=== PATIENT | female | born 1960 | race Caucasian/White ===

== ENCOUNTER 2020-02-05 14:42 | Inpatient (IN) | payer OTHER ==
[~2020-02-05] VITALS: Ht 172.7 cm; Wt 85.8 kg
--- NOTE | ~2020-02-05 | EMS ---
[facility] [address] [place] [address] EMS Patient Care Report Name: QUINTON VALADEZ Room #: PRE [place] M.R.#: [id number] Admission: Attend Phys: Discharge: Date of : 56 Report #: [id number] THIS REPORT FOR: //name// Report Transmitted: 02/05/2020 14:24 EMS Care Summary [place], [place]/[facility] Incident [id number] @ 02/05/2020 14:15 Incident Location [id number] [place] [address] Patient QUINTON VALADEZ Female, 59 Years 1960 Patient Address [id number] [place] [address] [address] [place] [address] Patient History Chronic Obstructive Pulmonary Disease (COPD),Edema,Dialysis,Back Pain (Chronic), Patient Allergies No known allergies, Patient Medications Amlodipine, Advair, Lasix, Acetaminophen, Chief Complaint SOA Disposition Transported No Lights/Willard Dispatch Reason Breathing Problem Transported To [facility] Narrative RESPONDED TO BREATHING PROBLEMS AT [facility]. UPON ARRIVAL PT FOUND SITTING IN WHEELCHAIR WITH 3LPM NC BASELINE, PT IS ALERT AND ORIENTED. AL STAFF REPORT PT WAS DIALYZED YESTERDAY BUT THE LAST FEW TIMES AT DIALYSIS THEY [facility] [address] [place] [address] EMS Patient Care Report Name: QUINTON VALADEZ Room #: LOGAN Ford.Alissa.#: [id number] Admission: Attend Phys: Discharge: Date of : 56 Report #: [id number] COULD NOT PULL ENOUGH FLUID OFF. ONLY ABLE TO PULL APPROX 20 UNITS OF FLUID SAFELY DURING DIALYSIS. PT STATES "I FEEL LIKE I'M GOING TO POP!" PT HAS WEEPING BLISTERES ON LEGS FROM FLUID BUILD UP. PT REPORTS FEELING MORE SOA THAN NORMAL. PT IS ABLE TO PIVOT FROM WHEELCHAIR TO COT. O2 PUT AT 4LPM BY EMS. VITALS AND 3LEAD OBTAINED. PT TRANSPORTED TO [facility] WITH NO CHANGE IN CONDITION. PT SCOOTED TO BED AND HANDRAILS UP. REPORT GIVEN TO NURSE. Initial Vitals @14:30P: 85,CO: 1,SpO2: 96, @14:34P: 85,R: 22,BP: 128/54,CO: 1,SpO2: 97, @14:29P: 94,R: 22,BP: 134/86,Pain: 4/10,GCS: 15,SpO2: 95,Revised Trauma: 12, Assessments @14:25MENTAL:Person Oriented,Time Oriented,Place Oriented,Event Oriented,SKIN:HEENT:Head/Face: No Abnormalities,Neck/Airway: No Abnormalities,LUNG SOUNDS:ABDOMEN:PELVIS//GI:EXTREMITIES:Right Leg: Edema,Left Leg: Edema,Left Arm: No Abnormalities,Right Arm: No Abnormalities,PULSE:NEURO:No Abnormalities,@14:32MENTAL:No Abnormalities,SKIN:No Abnormalities,HEENT:Head/Face: No Abnormalities,Eyes: No Abnormalities,Neck/Airway: No Abnormalities,LUNG SOUNDS:General: No Abnormalities,Left Upper: No Abnormalities,Right Upper: No Abnormalities,Left Lower: No Abnormalities,Right Lower: No Abnormalities,ABDOMEN:General: No Abnormalities,Left Upper: No Abnormalities,Right Upper: No Abnormalities,Left Lower: No Abnormalities,Right Lower: No Abnormalities,PELVIS//GI:No Abnormalities,EXTREMITIES:Left Leg: Edema,Right Leg: Edema,Left Arm: No Abnormalities,Right Arm: No Abnormalities,PULSE:NEURO:No Abnormalities, Impression Edema Procedures @14:25ALS AssessmentResponse: UnchangedSucceeded@14:28Oxygen FlowRate: 4 Device: Nasal Cannula (NC) Response: UnchangedSucceeded@14:303-Lead ECGResponse: UnchangedSucceeded Timeline 14:14,Call Received 14:14,Dispatch Notified 14:15,Dispatched 14:15,En Route 14:21,On Scene 14:25,At Patient 14:25,ALS Assessment,Response: UnchangedSucceeded, 14:28,Oxygen FlowRate: 4 Device: Nasal Cannula (NC) Response: UnchangedSucceeded, 14:29,BP: 134/86 M,PULSE: 94,RR: 22 R,SPO2: 95 Ox,ETCO2: ,BG: ,PAIN: 4,GCS: 15, [address] [address] EMS Patient Care Report Name: QUINTON VALADEZ Room #: PRE M.R.#: [id number] Admission: Attend Phys: Discharge: Date of : 56 Report #: [id number] 14:29,Depart Scene 14:30,3-Lead ECG,Response: UnchangedSucceeded, 14:30,BP: / M,PULSE: 85,RR: R,SPO2: 96 Ox,ETCO2: ,BG: ,PAIN: ,GCS: , 14:34,BP: 128/54 M,PULSE: 85,RR: 22 R,SPO2: 97 Ox,ETCO2: ,BG: ,PAIN: ,GCS: , 14:50,At Destination 14:57,Call Closed Disclaimer v1.1 Copyright 2020 [employer] This EMS Care Summary contains data elements from the applicable legal record (which may be displayed differently). It is designed to provide pertinent information for the following purposes: continuity of care, clinical quality, and state data reporting. The complete legal record is available to ED staff and administrators of the receiving hospital in [employer]'s Patient Tracker. All data is provided "as is."
--- NOTE | ~2020-02-05 | HC ---
[facility] [place] [address] CONSULTATION Name: QUINTON VALADEZ Room #: 349-I ADM IN M.R.#: [id number] Admission: 02/05/20 Attend Phys: Van Bautista MD Discharge: Date of : 56 Report #: [id number] THIS REPORT FOR: cc: Michele Hernandez MD, Srinath MD Al-Absi,Garry Hernandez MD ~ REASON FOR CONSULTATION: End-stage renal disease. HISTORY OF PRESENT ILLNESS: This is a 59-year-old who is maintained on dialysis at the [facility] every Sunday, Sunday and Sunday. She reported to the Emergency Room having some issues with fluid overload, shortness of breath, bilateral lower extremity edema. The patient does not know the details about her kidney history unfortunately. She tells me that she has been on hemodialysis for quite a while, but she is not able to elaborate more for me. She tells me that she has been having issues with fluid retention in the last couple of weeks and her dialysis unit is not able to pull as much as they want. She was admitted after being found to have fluid overload for further management with aggressive dialysis treatments. I was consulted to manage her end-stage renal disease. PAST MEDICAL HISTORY: 1. End-stage renal disease, maintained on hemodialysis every Sunday, Sunday and Sunday. Source of her end-stage renal disease is not known. 2. Chronic obstructive pulmonary disease. 3. Neuropathy. MEDICATIONS: Include the followin. Sevelamer. 2. Amlodipine. 3. Hydralazine. 4. Cephalexin. ALLERGIES: None. SOCIAL HISTORY: Resides in [facility]. No drug or alcohol abuse. FAMILY HISTORY: Significant for hypertension. REVIEW OF SYSTEMS: GENERAL: Significant for weakness. CARDIOVASCULAR: Significant for shortness of breath and dyspnea on exertion. PULMONARY: Significant for cough and shortness of breath. GASTROINTESTINAL: No nausea or vomiting. GENITOURINARY: No frequency, no urgency. MUSCULOSKELETAL: As per the history of present illness. [facility] [address] [place] [address] CONSULTATION Name: QUINTON VALADEZ Room #: 349-I ADM IN .R.#: [id number] Admission: 02/05/20 Attend Phys: Van Bautista MD Discharge: Date of : 56 Report #: [id number] PHYSICAL EXAMINATION: VITAL SIGNS: Her temperature is 36.9, blood pressure is 142/59. HEAD AND NECK: No jugular venous distention. CHEST: Decreased air entry bilaterally with crackles. CARDIOVASCULAR: No rub. ABDOMEN: Soft, nontender. LOWER EXTREMITIES: Extensive edema with erythematous changes. LABORATORY VALUES: Hemoglobin is 7.5. Sodium is 133, potassium is 6.3, BUN of 52, creatinine of 4.8. IMPRESSION AND PLAN: 1. End-stage renal disease. 2. Hyperkalemia. 3. Fluid overload. 4. Arrangement for the patient to have hemodialysis today. 5. Watch hemoglobin. 6. I will reach out to her dialysis unit to obtain more input about her medical history as the patient is not able to provide me with the exact details regarding her end-stage renal disease, history, ongoing anemia issues, ongoing vitamin D issues. By: [phone] Garry Deshpande MD /nt
[2020-02-05 14:44] VITALS: BP 133/48
[2020-02-05 15:22] LABS: HEMATOCRIT 23.9 % (37.0-47.0); HEMOGLOBIN 7.4 gm/dL (12.0-15.0); MCH 29.9 pg (26.0-34.0); MCHC 31.1 g/dL (28.0-37.0); MCV 96.4 fL (80.0-100.0); PLATELET COUNT 202 thou/uL (150-400); RBC 2.48 mil/uL (4.20-5.00); RDW 20.1 % (10.5-14.5); WBC 6.5 thou/uL (4.0-11.0)
[2020-02-05] MEDS ORDERED: TYLENOL325 M1 PO (15:34)
[2020-02-05] MEDS ORDERED: APAP W/CODEINE1 TA2 PO (15:36)
[2020-02-05] MEDS ORDERED: ADVAIR 250-501 EACH INH (15:36)
[2020-02-05] MEDS ORDERED: AMLODIPINE BESY10 MG PO (15:36)
[2020-02-05] MEDS ORDERED: LOMOTIL 2.5-0.01 TAB PO (15:37)
--- NOTE | 2020-02-05 15:37 | EKG ---
[facility] [place] [address] ELECTROCARDIOGRAM REPORT Name: QUINTON VALADEZ Room #: PRE [facility]..#: [id number] Admission: Attend Phys: Discharge: Date of : 56 Report #: [id number] THIS REPORT FOR: cc: Jorden Girard MD [facility] ~ THIS REPORT FOR: //name// [facility] ED Test Date: 2020-02-05 Test Time: 15:26:22 Pat Name: QUINTON VALADEZ Department: Room: Gender: F Support Representative: : 1960 Requested By: Terry Smith Order Number: [id number] MD: Jorden Girard Measurements Intervals [place] Rate: 81 P: 59 WA: 138 QRS: 48 QRSD: 134 T: 29 QT: 405 QTc: 470 Interpretive Statements Sinus rhythm Right bundle branch block No previous ECG available for comparison Electronically Signed On 02-05-2020 15:37:08 JEWELRY DESIGNER by Jorden Girard [email or web address] <ELECTRONICALLY SIGNED> By: Jorden Girard MD, FAC 02/05/20 1537 1526 1526 Jorden Girard MD, FACC /EPI
[2020-02-05] MEDS ORDERED: HYDRALAZINE 5050 MG PO (15:38)
[2020-02-05] MEDS ORDERED: FUROSEMIDE 40 M40 MG PO (15:38)
[2020-02-05] MEDS ORDERED: KEFLEX500 M1 PO (15:39)
[2020-02-05] MEDS ORDERED: PROBIOTIC1 EAC7 PO (15:40)
[2020-02-05 15:47] LABS: CALCIUM 8.5 mg/dL (8.5-10.1); CREATININE 4.4 mg/dL (0.6-1.0); POTASSIUM 5.1 mmol/L (3.5-5.1)
[2020-02-05 16:01] LABS: ABSOLUTE NEUTROPHILS 5.2 thou/uL (1.4-8.2)
[2020-02-05 16:02] LABS: ANISOCYTOSIS 1+; PLATELET ESTIMATE NORMAL
[2020-02-05 17:18] LABS: BE(vivo) -6.4 mmol/L (-2 to +3); HCO3 21.1 mmol/L (22.0-26.0); PCO2 52.2 mmHg (35.0-45.0); PO2 140.8 mmHg (80.0-100.0); sO2 98.3 % (92.0-98.0)
[2020-02-05 17:19] LABS: pH 7.225 (7.360-7.450)
[2020-02-05 18:05] LABS: % SATURATION 17 % (20-39); IRON 45 ug/dL (50-170); TIBC 264 ug/dL (250-450)
[2020-02-05 18:32] LABS: FOLIC ACID 9.4 ng/mL (8.6-58.9); TSH 1.839 uIU/mL (0.358-3.740)
[2020-02-06] VITALS (8 sets, daily range): BP systolic 120–142; BP diastolic 58–72
--- NOTE | 2020-02-06 05:31 | NUR ---
PT ARRIVED FROM ER VIA BED. PLACED IN ROOM 349. ADMISSION ASSESSMENTS COMPLETED. PT STATING THAT SHE CAME TO THE HOSPITAL DUE TO LOWER BACK PAIN. SHE DENIES IT WAS BECAUSE OF FEELING SOA. PT LYING IN BED WITHOUT OXYGEN IN PLACE. PT STATES "THEY WOULND'T GIVE ME OXYGEN DOWNSTAIRS." THOUGH ER REPORT WAS THAT PT WAS WEARING OXYGEN AT 3L PER NC. PT HAS GENERALIZED EDEMA, THROUGHOUT BOTH LEGS, HER WAIST LINE AND IN DEPENDENT AREAS OF HER BACK, HIPS AND GROIN. HAS ERYTHEMA TO BOTH HER LOWER LEGS. AFEBRILE THIS AM. REPORTS LOWER BACK PAIN THAT WAS 8/10.
[2020-02-06 06:24] LABS: ABSOLUTE NEUTROPHILS 3.7 thou/uL (1.4-8.2); BASOPHILS 0.4 % (0.0-2.0); HEMATOCRIT 23.7 % (37.0-47.0); HEMOGLOBIN 7.5 gm/dL (12.0-15.0); MCH 29.9 pg (26.0-34.0); MCHC 31.7 g/dL (28.0-37.0); MCV 94.3 fL (80.0-100.0); MONOCYTES 2.4 % (1.0-8.0); PLATELET COUNT 204 thou/uL (150-400); POLYS 91.2 % (36.0-66.0); RBC 2.52 mil/uL (4.20-5.00); WBC 4.1 thou/uL (4.0-11.0)
[2020-02-06 06:33] LABS: CALCIUM 9.3 mg/dL (8.5-10.1); CREATININE 4.8 mg/dL (0.6-1.0); MAGNESIUM 2.1 mg/dL (1.8-2.4)
[2020-02-06 06:37] LABS: POTASSIUM 6.3 mmol/L (3.5-5.1)
--- NOTE | 2020-02-06 06:41 | NUR ---
FUNMILAYO FROM LAB CALLED WITH CRITICAL LAB, POTASSIUM 6.3. RESULTS GIVEN TO PT NURSE AND PROTOCOL FOLLOWED.
[2020-02-06] MEDS ORDERED: OMEPRAZOLE 20 M20 M1 PO (07:40)
[2020-02-06] MEDS ORDERED: KLOR-CON M2020 MEQ PO (07:40)
[2020-02-06] MEDS ORDERED: PREGABALIN75 MG PO (07:42)
[2020-02-06] MEDS ORDERED: PREGABALIN150 MG PO (07:42)
[2020-02-06] MEDS ORDERED: RENVELA0.8 GM PO (07:44)
[2020-02-06] MEDS ORDERED: TIZANIDINE HCL2 M1 PO (07:44)
[2020-02-06] MEDS ORDERED: TOPAMAX100 MG PO (07:45)
[2020-02-06 10:23] LABS: BE(vivo) -0.7 mmol/L (-2 to +3); HCO3 24.5 mmol/L (22.0-26.0); PCO2 42.5 mmHg (35.0-45.0); PO2 104.2 mmHg (80.0-100.0); pH 7.378 (7.360-7.450); sO2 97.7 % (92.0-98.0)
--- NOTE | 2020-02-06 14:50 | NUR ---
ASSUMED PATIENT CARE AT 0700. A/O X3. CONFUSED. 5L FLUID MOVED BY HD. BLE WRAPED PER WOUND ORDER. TRANSFER TO [facility] NOW. WILL KEEP MONITOR.
--- NOTE | 2020-02-06 15:35 | NUR ---
ASSUMED CARE OF PT AT 1515 WHEN PT BROUGHT TO UNIT BY NURSING STAFF ON 3W. RECEIVED REPORT FROM PREVIOUS NURSE PRIOR TO TRANSFER. PT DENIES PAIN, ALERT AND ORIENTED TO PERSON AND PLACE ONLY. VITAL SIGNS ARE STABLE. +3 PITTING EDEMA TO BLE AND RUE. RIGHT SUBCLAVIAN LINE NOTED ON ASSESSMENT. 3L O2 VIA NC. IV TO LEFT FOREARM FLUSHES APPROPRIATELY AND IS SALINE LOCKED AT THIS TIME. PT REPORTS THAT SHE DOES NOT URINATE. RED AREA TO BUTTOCKS, BARRIER CREAM APPLIED TO AREA AND PT INSTRUCTED TO CHANGE POSITION FREQUENTLY AND TURN Q2H TO RELIEVE PRESSURE. FALL PRECAUTIONS IN PLACE AND NURSING WILL CONTINUE TO MONITOR.
--- NOTE | 2020-02-06 15:59 | NUR ---
INITIAL ASSESSMENT: BRADLY reviewed chart and spoke with nursing. Pt was admitted from [place] due to bilateral pleural effusion. Pt placed in Enhanced Isolation to r/o COVID-19. Pt's test was negative. Enhanced Isolation precautions discontinued. Pt moved to [facility] after dialysis. BRADLY placed call to pt's room. No answer. BRADLY left voice message for pt's family member, Jimena. sales planner to fax clinical info to [place] for review. BRADLY left voice message for Katelynn in admissions to see if they are able to accept pt back over the weekend if she is ready for discharge. Awaiting call back at this time. Finalized discharge orders/summary will need to be faxed to the facility when available. BRADLY is following to assist as needed with discharge planning. [place]--
--- NOTE | 2020-02-07 05:34 | NUR ---
ASSUMED PT'S CARE THIS SHIFT. PT ALERT AND ORIENTED X3. SOME CONFUSION AND FORGETFULNESS. PT TOOK MEDS WITHOUT ISSUES. PRN PAIN MED GIVEN THIS SHIFT. 3L O2. RIGHT SUBCLAV DIALYSIS CATH. LFA IV SL. DRESSINGS TO BLE REINFORCED. PT CAN BE VERY RUDE AND DISRESPECTFUL. PT VOICED WANTING TO GO OUTSIDE TO SMOKE. PT INFORMED THIS IS NONSMOKING FACILITY. PT GOT UPSET, INSISTING OF GOING OUT. NURSING ASKED IF PT WANTS NICOTINE PATCH, PT REPLIED "FK OFF". PT WAS SITTING AT EGDE OF BED, ENCOURAGED TO SIT NI TO AVOID FALLING, PT DECLINED. PRN HALDOL GIVEN THIS SHIFT. PT CURRENTLY SITTING ON HER RECLINER. PT SLEPT OFF AND ON. REFUSED BREATHING TREATMENTS. FALL PRECAUTIONS IN PLACE. WILL CONTINUE TO MONITOR.
[2020-02-07 08:35] VITALS: BP 157/70
--- NOTE | 2020-02-07 15:04 | NUR ---
PT A&O, FORGETFUL, ANXIOUS, FUSSY. PATIENT C/O OF BACK PAIN, MEDICAITON GIVEN. PATIENT RECEIVED DIALYSIS TODAY. PATIENT HAS GENERALIZED EDEMA. BILAT LE CELLULITIS, DREESING CHANGE COMPLETED. DIALYSIS CATH RIGHT SUBCLAVIAN, IV PATENT. NO SIGNS OF DISTRESS. WILL CONTINUE TO MONITOR.
[2020-02-07 16:29] VITALS: BP 159/85
--- NOTE | 2020-02-07 19:20 | NUR ---
AT THE START OF DIALYSIS PATIENT DID NOT WANT TO REMAIN IN BED. SHE WAS VERY RESTLESS AND KEPT ATTEMPTED TO GET FEET OUT OF BED TO STAND UP. MANY ATTEMPTS TO GET PATIENT TO STOP DOIND THIS BUT PATIENT SEEMED TO FORGET THE EDUCATION AND AGAIN ATTMPTED TO GET OUT OF BED. FLOOR RN PROVIDED LORAZEPAM AND AFTER ADMINISTRATION PATIENT QUICKLY FEEL ASLEEP. PATIENT SLEEPT FOR 2 HOURS AND THEN WOKE BACK UP TO CONTINUE SAME BEHAVIOUR OF ATTEMPTS TO GET FEET OUT OF BED AND TO THE FLOOR. THIS TOY STUFFER NOTIFIED PHYSICIAN THAT TREATMENT WAS SHORTENED DUE TO PATIENTS BEHAVIOR AND UF RATE INCREASED IN ATTEMPTS TO GET UF GOAL OF 4 LITERS IN 3 HOURS. THIS WAS ACCOMPLISHED WITHOUT COMPLICATIONS OUTSITE OF PATIENT ATTEMPTED TO LEAVE THE BED AND STAND. UPON ENDING TREATMENT THIS TOY STUFFER GOT PATIENT TO CHAIR AND PROVIDED THE PATIENT HER DINNER TRAY. THIS TOY STUFFER WAS CLEANING EQUIPMENT, PATIENT ASKED FLOOR NURSE JACEK TO GET HER BACK TO BED. PATIENT BACK IN BED THIS TOY STUFFER TOOK SUPPLY CART TO STORAGE ROOM. AT THE TIME THIS TOY STUFFER HAD RETURNED TO GET THE REMAINING MACHINE AND RO A DIFFERENT FLOOR NURSE WAS GETTING THE PATIENT BACK TO THE CHAIR BECAUSE THE PATIENT AGAIN WAS TRYING TO GET BACK OUT OF BED. AT THE TIME THIS TOY STUFFER LEFT PATIENTS ROOM WITH EQUIPMENT - 4 NURSES HAD PATIENT IN SETTELED IN BEDSIDE CHAIR.
[2020-02-07 21:17] VITALS: BP 136/73
--- NOTE | 2020-02-08 05:30 | NUR ---
Assumed pt care at 1900. A/OX4 with forgetfulness noted. VSS. Pt very anxious/restless at the beginning of the shift,medicated with ativan with relief noted. C/o generalized pain,medicated per EMAR with relief reported. Pt get's impulsive at times and keeps getting up w/o calling for help. Fall precautions in place. Generalized edema noted all over, pt encouraged to keep BLE elevated but constantly putting them down. Dressing change to BLE done at HS w/o problems. Pt often awakens and states she wants to go and smoke;educated pt on smoking cessation and this is a non-smoking facility, offered a Nicotine patch but she declined it. Right chest tessio in place, dialyzed yesterday. PCR swab obtained w/o problems. Resting on the chair at this time,feet down. Oxygen in place at 3L/NC. Will continue to monitor pt.
[2020-02-08 05:34] LABS: HEMATOCRIT 22.6 % (37.0-47.0); HEMOGLOBIN 7.2 gm/dL (12.0-15.0); MCH 30.1 pg (26.0-34.0); MCHC 31.9 g/dL (28.0-37.0); MCV 94.1 fL (80.0-100.0); PLATELET COUNT 194 thou/uL (150-400); RDW 18.9 % (10.5-14.5); WBC 4.8 thou/uL (4.0-11.0)
[2020-02-08 06:19] LABS: CALCIUM 8.3 mg/dL (8.5-10.1); POTASSIUM 3.8 mmol/L (3.5-5.1)
[2020-02-08 06:21] LABS: CREATININE 2.8 mg/dL (0.6-1.0)
[2020-02-08 07:47] VITALS: BP 137/67
[2020-02-08 09:33] LABS: ABSOLUTE NEUTROPHILS 3.7 thou/uL (1.4-8.2)
[2020-02-08 09:34] LABS: ANISOCYTOSIS 2+
--- NOTE | 2020-02-08 13:50 | NUR ---
PT A&OX2, VSS, C/O GENERALIZED PAIN. PATIENT IMPULSIVE AT TIMES, WANTING TO GO FROM RECLINER TO BED OFTEN. FORGETFUL AT TIMES. PATIENT C/O NOT BEING ABLE TO SMOKE AND DECLINES NICOTINE PATCH. PATIENT REFUSES SCHEDULED BRREATHING TREATMENTS, NOW PRN. PATIENT HAS GENERALIZED EDEMA. PATIENT ON 3L OF OXYGEN, SOA WITH EXERTION. NO SIGNS OF DISTRESS. WILL CONTINUE TO MONITOR.
[2020-02-08 19:48] VITALS: BP 157/81
--- NOTE | 2020-02-09 00:39 | NUR ---
PATIENT WAS IN BED WITH HOB UP 40 DEGREES WHEN I CAME ON SHIFT TONIGHT. SHE HAD REMOVED WOUND DRESSING AND WRAP FROM RIGHT LEG AND HAD REFUSED TO LET DAY NURSE REDRESS IT. PATIENT IS A/0X1 AND FORGETFUL. SHE IS IMPULSIVE AND TRIES TO SIT UP ON SIDE OF BED TO DANGLE LEGS. HER EDEMA IN HER BLE'S ARE 3+ SHE HAS EDEMA THRUOUT TORSO AND ABDOMEN. SHE HAS RIGHT EXTERNAL CATHETER IN RIGHT CHEST THAT IS USED FOR DIALYSIS ON SUN,WED,FRI. PATIENT WITH C/O BACK PAIN. PAIN MED GIVEN AT 2010. PATIENT WAS ALSO GIVEN DOSE OF HALDOL IV IN SALINE LOCK AT LEFT HAND. LORAZEPAM .5MG IV PUSH ALSO GIVEN AT 2010. PATIENT CALMED FOR AN HOUR AND THEN BECAME ANXIOUS AND TRYING TO GET OUT OF BED. PATIENT WAS SAT IN RECLINER CHAIR WITH IT LOCKED AND CHAIR ALARM ON AND IN PLACE. ZOFRAN 4MG GIVEN IVP. PATIENT'S RIGHT WOUND CARE DONE AND REDRESSED AND JANETTE BANDAGE WRAP APPLIED TO BLE. PATIENT IS ON 02 AT 3LNC. SHE APPEARS TO BE RESTING WITH HER EYES CLOSED AT THIS TIME. SHE IS REFUSING TO KEEP BLE'S ELEVATED. CONTINUING TO MONITOR.
[2020-02-09 05:44] LABS: HEMATOCRIT 23.5 % (37.0-47.0); HEMOGLOBIN 7.4 gm/dL (12.0-15.0); MCH 29.9 pg (26.0-34.0); MCHC 31.6 g/dL (28.0-37.0); MCV 94.7 fL (80.0-100.0); PLATELET COUNT 187 thou/uL (150-400); RBC 2.48 mil/uL (4.20-5.00); RDW 18.3 % (10.5-14.5); WBC 4.4 thou/uL (4.0-11.0)
[2020-02-09 05:56] LABS: MAGNESIUM 2.1 mg/dL (1.8-2.4); PHOSPHORUS 5.5 mg/dL (2.5-4.9)
[2020-02-09 06:22] LABS: ABSOLUTE NEUTROPHILS 2.8 thou/uL (1.4-8.2); ANISOCYTOSIS 3+; OVALOCYTES FEW; POLYCHROMASIA OCCASIONAL
--- NOTE | 2020-02-09 06:24 | NUR ---
PATIENT SLEPT IN HER RECLINER MOST OF NIGHT. SHE WOULD NOT KEEP HER FEET ELEVATED AND TOPS OF FEET RED. PATIENT HELPED BACK TO BED AT 0600 AND IS RESTING. SPOKE WITH US LICENSED PROFESSIONAL COUNSELOR AND SHE SAID NOT TO GIVE PATIENT BREAKFAST UNTIL AFTER US DONE. SHE STATES TO GO AHEAD AND GIVE MEDS WITH WATER. PATIENT ALSO TO HAVE DIALYSIS DONE TODAY. PANTROPAZOLE 40MG PO GIVEN WITH SIPS OF H20. BED IN LOW POSITION AND BED ALARM IS ON.
--- NOTE | 2020-02-09 09:30 | 2DMMODE ---
[facility] [address] [place] [address] 2 D/M-MODE ECHOCARDIOGRAM Name: QUINTON VALADEZ Room #: 458-P ADM IN M.R.#: [id number] Admission: 02/05/20 Attend Phys: Van Bautista MD Discharge: Date of : 56 Report #: [id number] THIS REPORT FOR: cc: Michele Hernandez MD, Srinath MD Park, Jin S. MD ~ APPROVED REPORT Study performed: 02/09/2020 08:22:48 EXAM: Comprehensive 2D, Doppler, and color-flow Echocardiogram Patient Location: Bedside Room #: [facility] Status: routine BSA: 1.99 HR: 80 bpm BP: 157/81 mmHg Rhythm: NSR/RBBB Other Information Study Quality: Good Indications Fluid overload, short of air. Hx: ESRD, HTN, CHF, RBBB. 2D Dimensions RVDd: 47.15 mm IVSd: 12.00 (7-11mm) LVOT Diam: 20.00 (18-24mm) LVDd: 49.00 mm PWd: 12.00 (7-11mm) LVDs: 37.12 (25-40mm) Aortic Root: 31.84 mm Volumes Left Atrial Volume (Systole) Single Plane 4CH: 66.24 mL Single Plane 2CH: 62.80 mL LA ESV Index: 35.00 mL/m2 Aortic Valve AoV Peak Darrius.: 2.62 m/s AO Peak Gr.: 27.45 mmHg LVOT Max P.37 mmHg AO Mean Gr.: 13.84 mmHg AO V2 Mean: 1.76 m/s LVOT Max V: 1.61 m/s [facility] [address] [place] [address] 2 D/M-MODE ECHOCARDIOGRAM Name: QUINTON VALADEZ Room #: 458-P [facility].#: [id number] Admission: 02/05/20 Attend Phys: Van Bautista MD Discharge: Date of : 56 Report #: [id number] AO V2 VTI: 48.78 cm VERA Vmax: 1.85 cm2 Mitral Valve E/A Ratio: 0.9 MV Decel. Time: 394.45 ms MV E Max Darrius.: 1.69 m/s MV A Darrius.: 1.79 m/s MV PHT: 114.39 ms IVRT: 55.36 ms Pulmonary Valve PV Peak Darrius.: 1.84 m/s PV Peak Gr.: 13.54 mmHg Pulmonary Vein P Vein S: 0.30 m/s P Vein D: 0.53 m/s P Vein S/D Ratio: 0.57 Tricuspid Valve TR Peak Darrius.: 3.12 m/s RAP Estimate: 15.00 mmHg TR Peak Gr.: 39.00 mmHg PA Pressure: 54.00 mmHg Left Ventricle The left ventricle is normal size. There is normal LV segmental wall motion. Mild concentric left ventricular hypertrophy. Left ventricular systolic function is normal. LVEF is 55-60%. Grade II - pseudonormal filling dynamics. Right Ventricle Right ventricle is dilated. The right ventricular systolic function is normal. Atria Mild biatrial enlargement. Aortic Valve Aortic valve is mildly calcified. Trace aortic regurgitation. There is no aortic valvular stenosis. Mitral Valve Mitral valve leaflets are thickened. Moderate mitral annular calcification. Mild mitral regurgitation. Tricuspid Valve [facility] [address] [address] 2 D/M-MODE ECHOCARDIOGRAM Name: QUINTON VALADEZ Room #: 458-P ADM IN M.R.#: [id number] Admission: 02/05/20 Attend Phys: Van Bautista MD Discharge: Date of : 56 Report #: [id number] The tricuspid valve is normal in structure. Moderate to severe tricuspid regurgitation. Estimated PAP is 50mmHg. Pulmonic Valve The pulmonary valve is normal in structure. Mild pulmonic regurgitation. Great Vessels The aortic root is normal in size. IVC is dilated and collapses <50% with inspiration. Pericardium Small pericardial effusion. Right pleural effusion. <Conclusion> The left ventricle is normal size. Mild concentric left ventricular hypertrophy. Left ventricular systolic function is normal. Grade II - pseudonormal filling dynamics. Right ventricle is dilated. Mild biatrial enlargement. Aortic valve is mildly calcified. Mitral valve leaflets are thickened. Moderate to severe tricuspid regurgitation. Estimated PAP is 50mmHg. <ELECTRONICALLY SIGNED> By: Grant More MD 02/09/20928 8 8 Grant More MD /INF
--- NOTE | 2020-02-09 13:52 | NUR ---
ASSUMED CARE OF PT AT APPROXIMATELY 0835. PT IS A&OX3. IS ON 2L OF O2/NC. REPORTED PAIN IN BILAT LE THAT ARE BEING MANAGED WITH ORAL PAIN MEDS & OTHER THERAPUETIC TECHNIQUES. PT WAS COMBATIVE THIS AM & AFTERNOON. ATTEMPTING TO CLIMB OUT OF THE DURING DIALYSIS. PT WAS EDUCATED THAT THIS WAS NOT ADVISED DURING DIALYSIS. SHE ELBOWED THIS NURSE 2X & THREW A PICTHER OF WATER ON THE DIALYSIS NURSE. SECURITY WAS CALLED 2X. PT CALMED DOWN WHILE THEY WERE THERE. HAS INTERMITTENTLY CONTINUED TO YELL & SCREAM AT THE DIALYSIS NURSE. PT HAS BEEN NPO FOR STUDIES TODAY. LABS REVIEWED. VITALS ASSESSED. IS UP WITH 1 ASSIST, GB, WALKER A FEW STEPS TO CHAIR. FALL PRECUATIONS & HOURLY ROUNDING CONINTUED THIS SHIFT. PT WAS JUST TAKEN DOWN FOR ULTRASOUND. WILL CONTINUE TO MONITOR UPON RETURN.
[2020-02-09 20:57] VITALS: BP 156/88
--- NOTE | 2020-02-09 21:09 | NUR ---
PT REFUSED AM MEDS. PT ALSO REMOVED DRSGS FROM BILAT LES & REFUSED TO ALLOW THIS NURSE TO REDRESS. PT REFUSED TO GET IN BED. CONTINUE TO DANGLE ON THE SIDE OF THE BED. ALARM REMAINED ON. FREQUENT CHECKS. NOT NURSE AWARE.
--- NOTE | 2020-02-09 21:22 | NUR ---
PT DC'D THIS EVENING. THIS NURSE DISCUSSED DISCHARGE ORDERS WITH PT. DC'D PICC LINE & PERIPHERAL IV. PT PACKED UP ROOM & TOOK THINGS WITH HER. PT ATE DINNER BEFORE LEAVING. WAS GIVEN A CABE VOUCHER. PT WAS STABLE. WOUND CARE COMPLETED. PICS IN CHART.
[2020-02-09 22:06] LABS: HEP B SURFACE Ab(ANTI-HBS Non Reactive (()); HEPATITIS B SURFACE AG Negative (Negative)
--- NOTE | 2020-02-10 01:48 | NUR ---
PT ALERT AND ORIENTED X 3. VERY IMPULSIVE TONIGHT. GETTING FROM BED TO CHAIR FREQUENTLY DESPITE REPEATED REMINDERS TO CALL FOR HELP. 02 ON AT 3L PER NC CONT. PT SOB WITH EXERTION. PT REFUSED HS MEDS. ATIVAN GIVEN AT 2254 AND PT HAS BEEN SLEEPING SINCE. DRESSINGS OFF LE'S. PT REFUSES TO HAVE THEM REPLACED. BED ALARM ON AT ALL TIMES FOR SAFETY. PT APPEARS TO BE SLEEPING ON HOURLY ROUNDS.
[2020-02-10 08:05] VITALS: BP 146/73
[2020-02-10 09:26] VITALS: BP 146/73
--- NOTE | 2020-02-10 10:06 | NUR ---
PATIENT IS ALERT, AND ORIENTED X 2-3 WITH PERIODS OF CONFUSSION, AND IMPULSIVE BEHAVIOR. PATIENT WAS SITTING ON HER BED, SUDDENLY SHE GOT OUT OF BED HEADING TOWARDS THE BATHROOM, "AM GOING TO MY BEDROOM I WANT TO LAY DOWN". PATIENT REDIRECTED, INFORMED THAT SHE WAS JUST SITTING ON HER BED, AND REDIRECTED TO BED. SHE TOOK ALL MEDICATION WITHOUT DIFFICULTY. PATIENT CONSUMED 100% BREAKFAST. [address] AT 3ML/NC. LUNGS WITH DIMINISHED SOUND PER ASUCULTATION IN ALL LOBE, CONTINUE TO HAVE SOA ON EXERTION. BLE REMAIN WITH REDNESS, TIGHTNESS, AND EDEMA. PATIENT TOOK JANETTE WRAP OFF. PATIENT DENIES HAVING PHYSICAL PAIN, NO SIGN OF ACUTE DISTRESS NOTED AT THIS TIME, CALL LIGHT IN REACH, WILL MONITOR FOR SAFETY.
--- NOTE | 2020-02-10 12:33 | NUR ---
PT DISCHARGING TODAY TO [facility] SKILLED FAXED DC ORDERS/SUMMRY TO FACILITY SPOKE WITH ZAIRA IN ADM SHE RECEIVED ORDERS AND ARRANGED TRANSPORT BY [facility] FOR [phone] TODAY. LEFT MSG WITH PT'S DTR (KHAI) OF DC AND TIME OF TRANSPORT. UNIT NOTIFIED AND CHART COPY PER US. RN TO CALL REPORT TO [phone].
--- NOTE | 2020-02-10 13:47 | NUR ---
CARE TEAM INDICATED THAT PT IS MEDICALLY STABLE TO DISCHARGE BACK TO [facility] THIS DAY. CHART COPY MADE. ORDERS FAXED. [facility] TRANSPORT ARRANGED FOR [phone]. MESSAGE LISTED FOR PT'S CONTACT KHAI. NURSE CALLED REPORT TO [place]. NO OTHER CM INTERVENTION INDICATED. CASE CLOSED.
--- NOTE | 2020-02-10 18:09 | HC ---
[facility] [place] [address] CONSULTATION Name: QUINTON VALADEZ Room #: 458-P [facility] IN M.R.#: [id number] Admission: 02/05/20 Attend Phys: Van Bautista MD Discharge: 02/10/20 Date of : 56 Report #: [id number] THIS REPORT FOR: cc: Michele Hernandez MD, Srinath MD Stephens,Aubrey Ferrari MD ~ DATE OF SERVICE: 02/06/2020 WOUND CARE CONSULTATION PERSONAL PHYSICIAN: Dr. Hernandez. CHIEF COMPLAINT: Lower extremity swelling, associated cellulitis and stasis dermatitis. HISTORY OF PRESENT ILLNESS: This is a 59-year-old white female with history of end-stage renal disease, on hemodialysis, who has noticed over the past several days she has had significant fluid retention causing significant edema in bilateral lower extremities with associated increased erythema, warmth and tenderness to bilateral lower extremities. The patient denied actual fevers or chills. The patient was admitted for congestive heart failure with fluid retention and the cellulitis of lower extremities. We have been asked to follow the patient because of the cellulitis. PAST MEDICAL HISTORY: End-stage renal disease, on hemodialysis; hypertension; congestive heart failure; COPD; venous stasis with associated edema. CURRENT MEDICATIONS: Multiple, I reviewed the patient's medication list. DRUG ALLERGIES: None. SOCIAL HISTORY: The patient smokes approximately half a pack of cigarettes daily. Resides in a residential. FAMILY HISTORY: Not pertinent to current medical condition. REVIEW OF SYSTEMS: CONSTITUTIONAL: The patient denies fevers or chills. NEUROLOGIC: The patient complains of overall generalized weakness, but no isolated weakness in arms or legs. EYES: No complaints. ENT: No complaints. CARDIAC: The patient has significant edema in bilateral lower extremities without associated chest pain or palpitation. [facility] [address] [place] [address] CONSULTATION Name: QUINTON VALADEZ Room #: 458-P [facility] IN [place].#: [id number] Admission: 02/05/20 Attend Phys: Van Bautista MD Discharge: 02/10/20 Date of : 56 Report #: [id number] RESPIRATORY: The patient denies actual dyspnea on exertion. She does have a slight cough. Denies actual shortness of breath. GASTROINTESTINAL: The patient denies any nausea, vomiting, abdominal pain. GENITOURINARY: The patient denies urgency or frequency. MUSCULOSKELETAL: No complaints. SKIN: There is significant stasis dermatitis, bilateral lower extremities with associated cellulitis. PHYSICAL EXAMINATION: VITAL SIGNS: Stable. The patient is afebrile. GENERAL: This is an alert and oriented x 3 obese white female who is in no acute distress, currently on hemodialysis. HEENT: Normocephalic, atraumatic. Mucous membranes are somewhat dry. Pupils are round. Sclerae white. NECK: Supple and nontender. LUNGS: Diminished breath sounds heard throughout. HEART: Regular. ABDOMEN: Obese, soft, nontender. EXTREMITIES: The patient has 3 to 4+ edema bilateral lower extremities with associated erythema, warmth and tenderness. Distal pulses are intact. There are no signs of any actual open wounds or weeping. Bilateral heels are slightly boggy and minimally tender. NEUROLOGIC: Cranial nerves 2-12 are grossly intact. Motor and sensory are grossly intact. LABORATORY DATA: White count 4.1, hemoglobin 7.5, potassium of 6.3, BUN 52, creatinine 4.8. BNP was 63,000. Albumin 3.5. Initial COVID-19 testing was negative. IMPRESSION: 1. Bilateral lower extremity cellulitis with associated edema secondary to #2. 2. Chronic venous insufficiency with significant stasis dermatitis and edema. 3. Congestive heart failure. 4. End-stage renal disease, on hemodialysis. 5. Generalized debility. PLAN: The patient will start having AmLactin cream placed on bilateral lower extremities with associated Kerlix and Catrachito from toes to knee on bilateral lower extremities daily. The patient will elevate her legs as much as possible. We will utilize hemodialysis per the school administrator [place] [address] CONSULTATION Name: QUINTON VALADEZ Room #: 458-P [facility] IN M.R.#: [id number] Admission: 02/05/20 Attend Phys: Van Bautista MD Discharge: 02/10/20 Date of : 56 Report #: [id number] hospitalist team. Continue all other current medications. I appreciate ability to consult. <ELECTRONICALLY SIGNED> By: Aubrey Randhawa MD 02/10/20 1809 1105 1923 Aubrey Randhawa MD /nt
== END 2020-02-10 16:31 | DRG 291 ==
LOC: ER 14:42 → EROBS 17:07 → 3W 17:07 → 4W 02-06 14:52
PROVIDERS: Emergency Medicine; Internal Medicine; Nurse Practitioner; ADMIT Internal Medicine; ATTEND Internal Medicine
PROC: 5A09357 Assistance with Respiratory Ventilation, Less than 24 Consecutive Hours, Continuous Positive Airway Pressure (ICD-10-PCS; principal; 2020-02-05)
PROC: 5A1D70Z Performance of Urinary Filtration, Intermittent, Less than 6 Hours Per Day (ICD-10-PCS; 2020-02-06)
DX: I13.2 Hypertensive heart and chronic kidney disease with heart failure and with stage 5 chronic kidney disease, or end stage renal disease (principal); I50.31 Acute diastolic (congestive) heart failure; N18.6 End stage renal disease; J96.21 Acute and chronic respiratory failure with hypoxia; J96.22 Acute and chronic respiratory failure with hypercapnia; G93.41 Metabolic encephalopathy; L03.116 Cellulitis of left lower limb; L03.115 Cellulitis of right lower limb; R18.8 Other ascites; Z20.828 Contact with and (suspected) exposure to other viral communicable diseases; J44.9 Chronic obstructive pulmonary disease, unspecified; G62.9 Polyneuropathy, unspecified; E87.5 Hyperkalemia; F17.210 Nicotine dependence, cigarettes, uncomplicated; I87.8 Other specified disorders of veins; E55.9 Vitamin D deficiency, unspecified; D63.8 Anemia in other chronic diseases classified elsewhere; I87.2 Venous insufficiency (chronic) (peripheral); Z79.899 Other long term (current) drug therapy; Z99.2 Dependence on renal dialysis; Z82.49 Family history of ischemic heart disease and other diseases of the circulatory system; Z71.6 Tobacco abuse counseling; E53.8 Deficiency of other specified B group vitamins
CPT/HCPCS: 10040; 10045; 32100

== ENCOUNTER 2020-02-25 12:25 | Emergency (ER) | payer OTHER ==
[~2020-02-25] VITALS: Ht 172.7 cm; Wt 77.1 kg
[~2020-02-25 12:25] MED LIST: ADVAIR 250-501 EACH INH; AMLODIPINE BESY10 MG PO; APAP W/CODEINE1 TA2 PO; FUROSEMIDE 40 M40 MG PO; HYDRALAZINE 5050 MG PO; KEFLEX500 M1 PO; KLOR-CON M2020 MEQ PO; LOMOTIL 2.5-0.01 TAB PO; OMEPRAZOLE 20 M20 M1 PO; PREGABALIN150 MG PO; PREGABALIN75 MG PO; PROBIOTIC1 EAC7 PO; RENVELA0.8 GM PO; TIZANIDINE HCL2 M1 PO; TOPAMAX100 MG PO; TYLENOL325 M1 PO
[2020-02-25 13:15] LABS: ABSOLUTE NEUTROPHILS 4.9 thou/uL (1.4-8.2); BASOPHILS 1.1 % (0.0-2.0); EOSINOPHILS 3.3 % (0.0-3.0); HEMATOCRIT 24.3 % (37.0-47.0); HEMOGLOBIN 7.7 gm/dL (12.0-15.0); MCHC 31.6 g/dL (28.0-37.0); MCV 94.9 fL (80.0-100.0); MONOCYTES 11.1 % (1.0-8.0); PLATELET COUNT 242 thou/uL (150-400); POLYS 75.5 % (36.0-66.0); RBC 2.56 mil/uL (4.20-5.00); RDW 18.9 % (10.5-14.5); WBC 6.4 thou/uL (4.0-11.0)
[2020-02-25 13:28] LABS: CREATININE 6.3 mg/dL (0.6-1.0); MAGNESIUM 2.3 mg/dL (1.8-2.4)
[2020-02-25 13:53] LABS: ANISOCYTOSIS 1+; HYPOCHROMASIA SLIGHT; POIKILOCYTOSIS SLIGHT
--- NOTE | 2020-02-25 15:44 | EKG ---
[facility] [place] [address] ELECTROCARDIOGRAM REPORT Name: QUINTON VALADEZ Room #: [facility].#: [id number] Admission: 02/25/20 Attend Phys: Discharge: Date of : 56 Report #: [id number] THIS REPORT FOR: cc: Michele Hernandez MD, Srinath MD Santiago, Patrick MD 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 /EPI
[2020-02-25 22:40] VITALS: BP 142/68
[2020-02-26] MEDS ORDERED: ACIDOPHILUS1 EAC2 PO (04:09)
[2020-02-26] MEDS ORDERED: MONISTAT 315 GM VAG (04:12)
[2020-02-26] MEDS ORDERED: POTASSIUM20 PO (04:14)
[2020-02-26] MEDS ORDERED: PULMICORT0.25 MG/2 INH (04:16)
[2020-02-26] MEDS ORDERED: CETIRIZINE PO (04:18)
[2020-02-27 08:06] LABS: HEP B SURFACE Ab(ANTI-HBS Non Reactive (()); HEPATITIS B SURFACE AG Negative (Negative)
== END 2020-02-25 22:51 | disposition home or self-care (01) ==
LOC: ER 12:25
PROVIDERS: Emergency Medicine; Internal Medicine Nephrology
DX: I12.0 Hypertensive chronic kidney disease with stage 5 chronic kidney disease or end stage renal disease (principal); N18.6 End stage renal disease; D63.1 Anemia in chronic kidney disease; R60.1 Generalized edema; E87.5 Hyperkalemia; E66.9 Obesity, unspecified; J44.9 Chronic obstructive pulmonary disease, unspecified; Z79.899 Other long term (current) drug therapy; F17.210 Nicotine dependence, cigarettes, uncomplicated; Z68.25 Body mass index [BMI] 25.0-25.9, adult; Z91.15 Patient's noncompliance with renal dialysis; Z99.2 Dependence on renal dialysis
CPT/HCPCS: 32100

== ENCOUNTER 2020-03-18 08:42 | Emergency (ER) | payer OTHER ==
[~2020-03-18] VITALS: Ht 172.7 cm; Wt 81.7 kg
[~2020-03-18 08:42] MED LIST changes: +ACIDOPHILUS1 EAC2 PO; +CETIRIZINE PO; +MONISTAT 315 GM VAG; +POTASSIUM20 PO; +PULMICORT0.25 MG/2 INH
[2020-03-18 09:06] LABS: ABSOLUTE NEUTROPHILS 4.8 thou/uL (1.4-8.2); BASOPHILS 0.7 % (0.0-2.0); EOSINOPHILS 3.1 % (0.0-3.0); HEMATOCRIT 24.2 % (37.0-47.0); HEMOGLOBIN 7.6 gm/dL (12.0-15.0); LYMPHOCYTES 7.6 % (24.0-44.0); MCH 29.9 pg (26.0-34.0); MCHC 31.6 g/dL (28.0-37.0); MCV 94.5 fL (80.0-100.0); PLATELET COUNT 230 thou/uL (150-400); POLYS 73.6 % (36.0-66.0); RBC 2.56 mil/uL (4.20-5.00); RDW 16.3 % (10.5-14.5); WBC 6.5 thou/uL (4.0-11.0)
[2020-03-18 09:28] LABS: ALBUMIN 3.7 g/dL (3.4-5.0); CALCIUM 9.9 mg/dL (8.5-10.1); CREATININE 6.5 mg/dL (0.6-1.0); TOTAL BILIRUBIN 0.5 mg/dL (0.2-1.0); TOTAL PROTEIN 7.2 g/dL (6.4-8.2)
[2020-03-18 09:31] LABS: POTASSIUM 6.3 mmol/L (3.5-5.1)
--- NOTE | 2020-03-18 12:09 | EKG ---
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 : 1960 Requested By: Roger Padilla Order Number: [id number] MD: Jorden Girard Measurements Intervals [place] Rate: 85 P: 39 [place]: 137 QRS: -21 QRSD: 135 T: 48 QT: 386 QTc: 459 Interpretive Statements Sinus rhythm Probable left atrial enlargement Right bundle branch block Baseline wander in lead(s) V1,V3 Compared to ECG 02/25/2020 13:43:16 No significant changes Electronically Signed On 03-18-2020 12:09:24 FEED MILL OPERATOR by Jorden Girard [email or web address] <ELECTRONICALLY SIGNED> By: Jorden Girard MD, [facility] 03/18/20 1209 0855 [id number] Jorden Girard MD, FACC /EPI
[2020-03-18 13:20] VITALS: BP 153/67
== END 2020-03-18 13:35 | disposition other institution (70) ==
LOC: ER 08:42
PROVIDERS: Emergency Medicine
DX: S32.018A Other fracture of first lumbar vertebra, initial encounter for closed fracture (principal); R60.1 Generalized edema; E87.5 Hyperkalemia; J44.9 Chronic obstructive pulmonary disease, unspecified; I12.0 Hypertensive chronic kidney disease with stage 5 chronic kidney disease or end stage renal disease; N18.6 End stage renal disease; F17.210 Nicotine dependence, cigarettes, uncomplicated; Z99.2 Dependence on renal dialysis; Z79.899 Other long term (current) drug therapy; W18.39XA Other fall on same level, initial encounter; Y93.89 Activity, other specified; Y92.89 Other specified places as the place of occurrence of the external cause; Y99.8 Other external cause status

== ENCOUNTER 2020-03-31 15:02 | Emergency (ER) | payer OTHER ==
[~2020-03-31] VITALS: Ht 162.6 cm; Wt 90.7 kg
[2020-03-31 16:42] VITALS: BP 172/73
[2020-03-31] MEDS ORDERED: LYRICA150 MG PO (16:45)
== END 2020-03-31 15:30 | disposition left against medical advice (07) ==
LOC: ER 15:02
DX: R50.9 Fever, unspecified (principal); J44.9 Chronic obstructive pulmonary disease, unspecified; I12.0 Hypertensive chronic kidney disease with stage 5 chronic kidney disease or end stage renal disease; N18.6 End stage renal disease; F17.210 Nicotine dependence, cigarettes, uncomplicated; Z99.2 Dependence on renal dialysis; Z79.899 Other long term (current) drug therapy; Z88.2 Allergy status to sulfonamides